=== PATIENT | male | born 1970 | race African-American/Black ===

== ENCOUNTER 2019-06-10 06:44 | Day surgery (SDC) | payer OTHER ==
[~2019-06-10] VITALS: Ht 171.4 cm; Wt 69.0 kg
[2019-06-10] VITALS (12 sets, daily range): BP systolic 126–158; BP diastolic 78–101; PULSE 69–99; RESP 12–20; Ht 171.4 cm; Wt 69.0 kg
--- NOTE | 2019-06-10 07:25 | HPN ---
Date/Time of Note Date/Time of Note DATE: 06/10/19 TIME: 07:25 Interval H&P Admission Note Pt. seen H&P reviewed: No system changes CLOVIS MCKEON MD Jun 10, 2019 07:25
[2019-06-10] MEDS ORDERED: HYDR25TA6 PO (08:05)
[2019-06-10] MEDS ORDERED: ERGO2000 PO (08:06)
[2019-06-10] MEDS ORDERED: LOSA50TA14 PO (08:06)
[2019-06-10] MEDS ORDERED: LISI40TA3 PO (08:06)
[2019-06-10] MEDS ORDERED: MECL-77 PO (08:07)
[2019-06-10] MEDS ORDERED: MIDAZOLAM 1 MG/ML 2 ML INJ ONE (08:23)
[2019-06-10] MEDS ORDERED: LIDOCAINE 2% (SDV) 5 ML INJ ONE (08:23)
[2019-06-10] MEDS ORDERED: PROPOFOL 20 ML ONE (08:23)
[2019-06-10] MEDS ORDERED: ROPIVACAINE 0.5 % 30 ML VIAL ONE (08:23)
[2019-06-10] MEDS ORDERED: ROCURONIUM 50 MG INJ ONE (08:23)
[2019-06-10] MEDS ORDERED: SUGAMMADEX SODIUM 200 MG/2 ML VIAL IV ONE ×2 (08:28→09:50)
[2019-06-10] MEDS ORDERED: BUPIVACAINE 0.25%/EPI (SDV) 30 ML INJ ONE (08:52)
--- NOTE | 2019-06-10 09:06 | PREAC ---
Date/Time of Note Date/Time of Note DATE: 06/10/19 TIME: 09:04 Anesthesia Eval and Record Evaluation Time Pre-Procedure Interview DATE: 06/10/19 TIME: 09:04 Age 49 Sex male NPO: 8 hrs Preoperative diagnosis right inguinal hernia Planned procedure open inguinal hernia Past Medical History Past Medical History: Includes Cardio: HTN Surgery & Anesthesia Issues No known issue Meds Anticoagulation: No Beta Kortney within 24 hr: No Reason Beta Kortney not given: Pt. not on B-Kortney Reported Medications Meclizine Hcl* (Meclizine Hcl*) 25 Mg Tablet, 25 MG PO QID PRN for DIZZINESS, TAB 06/10/19 Ergocalciferol (Vitamin D2) (VITAMIN D2) 2,000 Unit Tablet, 2000 UNIT PO DAILY, TAB 06/10/19 Lisinopril* (Lisinopril*) 40 Mg Tablet, 40 MG PO DAILY, #30 TAB 06/10/19 Losartan Potassium* (Losartan Potassium*) 50 Mg Tablet, 50 MG PO BID, TAB 06/10/19 Hydrochlorothiazide* (Hydrochlorothiazide*) 25 Mg Tab, 25 MG PO DAILY, #30 TAB 06/10/19 Meds reviewed: Yes Allergies Coded Allergies: Penicillins (Verified Allergy, Unknown, 06/10/19) Allergies Reviewed: Yes Labs/Studies Labs Reviewed: Reviewed by anesthesiologist test: N/A Pre-procedure Exam Last vitals Vital Signs Date Temp Pulse Resp B/P (MAP) Pulse Ox O2 O2 Flow FiO2 Time Delivery Rate 06/10/19 98.2 69 16 126/85 100 Room Air 07:34 (99) Airway: Adequate mouth opening, Adequate thyromental dist Mallampati: Mallampati III Teeth: Normal Lung: Normal Heart: Normal ASA Physical Status ASA physical status: 2 Emergency: None Pre-operative Attestations Prior to commencing anesthesia and surgery, the patient was re-evaluated, there was verification of: *The patient's identity *The results of appropriate recent lab work and preoperative vital signs *The above evaluation not changing prior to induction *Anesthetic plan, risk benefits, alternative and complications discussed with patient/family; questions answered; patient/family understands, accepts and wishes to proceed. JOSE REEVES DO Jun 10, 2019 09:06
[2019-06-10] MEDS ORDERED: CLINDAMYCIN 600 MG/D5W (PMX) 0 ML IVPB ONE (09:25)
[2019-06-10] MEDS ORDERED: CLINDAMYCIN 900 MG/D5W (PMX) 50 ML IVPB ONE (09:25)
[2019-06-10] MEDS ORDERED: hydrALAzine 20 MG INJ IV PRN (09:30)
[2019-06-10] MEDS ORDERED: HYDROmorphONE 1 MG/5 ML IV SYRINGE IV PRN ×3 (09:30)
[2019-06-10] MEDS ORDERED: ONDANSETRON 4 MG INJ IV PRN ×2 (09:30→10:00)
[2019-06-10] MEDS ORDERED: LABETALOL HCL 20MG INJ IV PRN (09:30)
[2019-06-10] MEDS ORDERED: ONDANSETRON 4 MG INJ ONE (09:40)
[2019-06-10] MEDS ORDERED: DEXAMETHASONE 4 MG/ML 5 ML INJ ONE (09:40)
[2019-06-10] MEDS ORDERED: BUPIVACAINE 0.5% 30 ML VIAL INJ ONE ×2 (09:41→09:56)
[2019-06-10] MEDS ORDERED: OXYCODONE/ACETAMINOPHEN (5/325) TAB PO PRN ×2 (10:00)
[2019-06-10] MEDS ORDERED: morphine 2 MG INJ IV PRN (10:00)
--- NOTE | 2019-06-10 10:00 | OPR ---
Date/Time of Note Date/Time of Note DATE: 06/10/19 TIME: 09:56 Operative Report Procedure Date: Jun 10, 2019 Preoperative Diagnosis Right inguinal hernia without obstruction Postoperative Diagnosis Right inguinal hernia without obstruction (direct) Operation/Procedure Performed 1. Repair right inguinal hernia with extra large plug 2. Right ilioinguinal nerve block Surgeon Clovis Mckeon MD Home Service Consultant None Anesthesia Type: general Anesthesiologist: JOSE REEVES DO Estimated Blood Loss: minimal Transfusion none Specimen None Grafts/Implants Extra-large Bard PerFix plug Tubes/Drains None Complications none Pt Condition Post Procedure: stable Disposition: PACU Indications Symptomatic Procedure Description Satisfactory general anesthesia was achieved, the abdomen was prepped and draped in the usual fashion. A 4 cm transverse suprapubic right groin incision was made and carried down to the level of the external oblique aponeurosis which was opened in the direction of its fibers. The cord and nerve were retracted and preserved. There was no indirect sac there was a large direct inguinal hernia. The hernia was reduced. The reduction was maintained placing an extra-large Bard PerFix plug into the defect and securing it to healthy fascia with interrupted 3-0 Vicryl suture. Next the flat portion of the mesh was cut and fashioned to fit in the floor the canal is an overlay. It was anchored at the pubic tubercle with a 2-0 Novafil which was run approximating mesh to inguinal ligament laterally to beyond the internal ring. A second 2-0 Novafil was then run from pubic tubercle approximating mesh to conjoined tendon medially to be on the internal ring. The mesh distal to the cord was reconstituted with a single suture of 3-0 Vicryl creating a new internal ring of appropriate size. The cord and nerve were then replaced beneath the external oblique which was closed with running 3-0 Vicryl suture. Next a right ilioinguinal nerve block was performed. 10 cc of 0.5% plain Marcaine were injected into the fascia 1 cm medial and inferior to the right anterior iliac spine. 10 more cc of local anesthetic were injected directly into the skin and subcutaneous tissues. Kathy's fascia was closed with interrupted 3-0 Vicryl suture and skin closed with subcuticular absorbable cherrie. Sponge and needle counts were reported as correct x2. CLOVIS MCKEON MD Jun 10, 2019 10:00
--- NOTE | 2019-06-10 10:08 | PAC ---
Date/Time of Note Date/Time of Note DATE: 06/10/19 TIME: 10:07 Post-Anesthesia Notes Post-Anesthesia Note Last documented vital signs Vital Signs Date Temp Pulse Resp B/P (MAP) Pulse Ox O2 O2 Flow FiO2 Time Delivery Rate 06/10/19 98 93 14 129/65 100 Room Air 1000 Activity: WNL Respiratory function: WNL Cardiovascular function: WNL Mental status: Baseline Pain reasonably controlled: Yes Hydration appropriate: Yes Nausea/Vomiting absent: Yes JOSE REEVES DO Jun 10, 2019 10:08
== END 2019-06-10 11:47 | disposition home or self-care (01) ==
LOC: SDS 06:44
PROVIDERS: ATTEND Surgery
DX: K40.90 Unilateral inguinal hernia, without obstruction or gangrene, not specified as recurrent (principal); I10 Essential (primary) hypertension
CPT/HCPCS: 49505; 64425; J1100; J1170; J2250; J2405; J2795; J3010; Z7610; C1781